=== PATIENT | female | born 1945 | race Caucasian/White ===

== ENCOUNTER 2022-04-16 13:39 | Outpatient (CLI) | payer MEDICARE, OTHER | END 2022-04-16 13:40 | disposition home or self-care (01) | LOC: CSHULT 13:39 | PROVIDERS: ATTEND Family Medicine | DX: R00.2 Palpitations (principal); I49.3 Ventricular premature depolarization; I34.0 Nonrheumatic mitral (valve) insufficiency; I07.1 Rheumatic tricuspid insufficiency | CPT/HCPCS: 93306 ==

== ENCOUNTER 2024-03-03 15:23 | Outpatient (CLI) | payer MEDICARE, OTHER | END 2024-03-03 15:24 | disposition home or self-care (01) | LOC: CSHULT 15:23 | PROVIDERS: ATTEND Family Medicine | DX: M79.662 Pain in left lower leg (principal) ==

== ENCOUNTER 2024-11-09 14:52 | Outpatient (CLI) | payer MEDICARE, OTHER | END 2024-11-09 14:53 | disposition home or self-care (01) | LOC: CSHMRI 14:52 | PROVIDERS: ATTEND Family Medicine | DX: M25.562 Pain in left knee (principal); M25.572 Pain in left ankle and joints of left foot; S83.242A Other tear of medial meniscus, current injury, left knee, initial encounter; S83.282A Other tear of lateral meniscus, current injury, left knee, initial encounter; M67.472 Ganglion, left ankle and foot; M19.072 Primary osteoarthritis, left ankle and foot ==